=== PATIENT | male | born 1980 | race Asian ===

== ENCOUNTER 2020-02-23 09:59 | Emergency (ER) | payer MEDICAID, MEDICARE ==
[~2020-02-23] VITALS: Ht 167.6 cm; Wt 88.6 kg
[~2020-02-23 09:59] MED LIST: NO HOME MEDS
[2020-02-23] MEDS ORDERED: ALBU6.7H9 INH (10:06)
[2020-02-23 10:08] VITALS: BP 102/73
== END 2020-02-23 10:17 | disposition home or self-care (01) ==
LOC: ER 10:00
DX: J45.909 Unspecified asthma, uncomplicated (principal); Z79.899 Other long term (current) drug therapy
CPT/HCPCS: 93005; 99283